=== PATIENT | female | born 1975 | race Caucasian/White ===

== ENCOUNTER 2022-01-09 07:24 | Emergency (ER) | payer BC ==
[~2022-01-09] VITALS: Ht 160 cm; Wt 55.7 kg
[~2022-01-09 07:24] MED LIST: PRCD5U PO; PRD50T PO
[2022-01-09] MEDS ORDERED: FAMOTIDINE 20 MG (PEPCID) TABLET PO STA (07:40)
[2022-01-09] MEDS ORDERED: ANTACID SUSP 30 ML UDC (MYLANTA) PO ONE (07:45)
[2022-01-09] MEDS ORDERED: LIDOCAINE 2% VISCOUS 15 ML UDC PO ONE (07:45)
[2022-01-09] MEDS ORDERED: ACETAMINOPHEN 500 MG TAB (TYLENOL) PO ONE (07:45)
[2022-01-09] MEDS ORDERED: HYOSCYAMINE 0.125 MG (LEVSIN) TAB SL ONE (07:45)
--- NOTE | 2022-01-09 07:46 | ED Abdominal Pain ---
General Stated Complaint: ABD PAIN Source of Information: Patient Exam Limitations: No Limitations History of Present Illness Date Seen by Provider: Jan 09, 2022 Time Seen by Provider: 07:28 Initial Comments 46-year-old female with no pertinent past medical history coming in due to general abdominal pain. Started , was constant that day, crampy/sharp at times. Got better at night, persisted through the weekend. Not associated with any nausea, vomiting, diarrhea, fever, chills, dysuria, vaginal discharge, vaginal bleeding, or any other concerns. Eating does not change it. Feels better when she sits forward. Went to walk-in clinic yesterday and was told it could be gastritis, to stop trying ibuprofen, and to decrease her caffeine intake. She has never had pain like this before. Only previous abdominal surgery was a many years ago. Had a bowel movement on Saturday which is pretty typical for her. She states the pain this morning feels more like in her lower abdomen most of the time. She is otherwise denying any other acute complaints. Does not have periods with her IUD in place. Allergies and Home Medications Allergies Coded Allergies: No Known Drug Allergies (Unverified , 12/22/11) Patient Home Medication List Home Medication List Reviewed: Yes Prednisone (Prednisone) 50 Mg Tab, 40 MG PO DAILY Prescribed by: JOURDAN VALENCIA on 12/22/11 1345 Promethazine/Codeine (Phenergan W/Codeine Syrup) 5 Ml Syrp, 0 PO Q4H Prescribed by: JOURDAN VALENCIA on 12/22/11 1345 Review of Systems Review of Systems Constitutional: No fever EENTM: No Blurred Vision Respiratory: Denies Cough Cardiovascular: Denies Chest Pain Gastrointestinal: Abdominal Pain; Denies Diarrhea, Denies Nausea, Denies Vomiting Genitourinary: No Symptoms Reported Musculoskeletal: no symptoms reported Skin: no symptoms reported Psychiatric/Neurological: No Symptoms Reported Endocrine: No Symptoms Reported Hematologic/Lymphatic: No Symptoms Reported All Other Systems Reviewed Negative Unless Noted: Yes Past [id number] Hx Patient Social History Use of E-Cig and/or Vaping dev: Yes E-Cig or Vaping type used: Nicotine Substance use?: No Alcohol Use?: Yes Alcohol Frequency: Once in a while Seasonal Allergies Seasonal Allergies: Yes Past Medical History Surgeries: Yes Section Physical Exam Vital Signs Vital Signs - First Documented 01/09/22 07:40 Temp 36.0 Pulse 96 Resp 18 B/P (MAP) 123/84 (97) Pulse Ox 98 Capillary Refill : Height/Weight/BMI Height: '" Weight: lbs. oz. kg; BMI Method: General Appearance: WD/WN, no apparent distress HEENT: PERRL/EOMI, normal ENT inspection, pharynx normal Neck: non-tender, full range of motion, supple, normal inspection Respiratory: chest non-tender, lungs clear, normal breath sounds, no respiratory distress, no accessory muscle use Cardiovascular: regular rate, rhythm, no edema, no murmur Gastrointestinal: normal bowel sounds, soft; No distended, No guarding, No rebound; tenderness Extremities: normal range of motion, non-tender, normal inspection, no pedal edema, no calf tenderness, normal capillary refill Back: normal inspection, no CVA tenderness Neurologic/Psychiatric: no motor/sensory deficits, alert, normal mood/affect Skin: normal color, warm/dry Lymphatic: no adenopathy Progress/Results/Core Measures Results/Orders Lab Results Laboratory Tests Test 01/09/22 07:43 01/09/22 07:53 Range/Units White Blood Count 9.3 4.3-11.0 10^3/uL Red Blood Count 4.56 3.80-5.11 10^6/uL Hemoglobin 15.0 11.5-16.0 g/dL Hematocrit 44 35-52 % Mean Corpuscular Volume 96 80-99 fL Mean Corpuscular Hemoglobin 33 25-34 pg Mean Corpuscular Hemoglobin Concent 34 32-36 g/dL Red Cell Distribution Width 12.0 10.0-14.5 % Platelet Count 353 130-400 10^3/uL Mean Platelet Volume 9.0 9.0-12.2 fL Immature Granulocyte % (Auto) 0 % Neutrophils (%) (Auto) 70 42-75 % Lymphocytes (%) (Auto) 21 12-44 % Monocytes (%) (Auto) 5 0-12 % Eosinophils (%) (Auto) 3 0-10 % Basophils (%) (Auto) 1 0-10 % Neutrophils # (Auto) 6.5 1.8-7.8 10^3/uL Lymphocytes # (Auto) 2.0 1.0-4.0 10^3/uL Monocytes # (Auto) 0.5 0.0-1.0 10^3/uL Eosinophils # (Auto) 0.2 0.0-0.3 10^3/uL Basophils # (Auto) 0.1 0.0-0.1 10^3/uL Immature Granulocyte # (Auto) 0.0 0.0-0.1 10^3/uL Sodium Level 135 135-145 MMOL/L Potassium Level 4.4 3.6-5.0 MMOL/L Chloride Level 103 98-107 MMOL/L Carbon Dioxide Level 23 21-32 MMOL/L Anion Gap 9 5-14 MMOL/L Blood Urea Nitrogen 17 7-18 MG/DL Creatinine 1.09 0.60-1.30 MG/DL Estimat Glomerular Filtration Rate 63 BUN/Creatinine Ratio 16 Glucose Level 105 70-105 MG/DL Calcium Level 9.2 8.5-10.1 MG/DL Corrected Calcium 8.9 8.5-10.1 MG/DL Magnesium Level 2.1 1.6-2.4 MG/DL Total Bilirubin 0.4 0.1-1.0 MG/DL Aspartate Amino Transf (AST/SGOT) 22 5-34 U/L Alanine Aminotransferase (ALT/SGPT) 19 0-55 U/L Alkaline Phosphatase 70 40-136 U/L Total Protein 7.4 6.4-8.2 GM/DL Albumin 4.4 3.2-4.5 GM/DL Lipase 24 8-78 U/L Urine Color YELLOW Urine Clarity CLEAR Urine pH 6.0 5-[address] [place] 1.015 L 1.016-1.022 Urine Protein NEGATIVE NEGATIVE Urine Glucose (UA) NEGATIVE NEGATIVE Urine Ketones NEGATIVE NEGATIVE Urine Nitrite NEGATIVE NEGATIVE Urine Bilirubin NEGATIVE NEGATIVE Urine Urobilinogen 0.2 < = 1.0 MG/DL Urine Leukocyte Esterase 1+ H NEGATIVE Urine RBC (Auto) 2+ H NEGATIVE Urine RBC 0-2 /HPF Urine WBC 2-5 /HPF Urine Squamous Epithelial Cells 5-10 /HPF Urine Crystals NONE /LPF Urine Bacteria FEW H /HPF Urine Casts NONE /LPF Urine Mucus NEGATIVE /LPF Urine Culture Indicated NO My Orders Orders - JOSE MARTINES MD Cbc With Automated Diff (01/09/22 07:40) Comprehensive Metabolic Panel (01/09/22 07:40) Lipase (01/09/22 07:40) Magnesium (01/09/22 07:40) Ua Culture If Indicated (01/09/22 07:40) Lidocaine 2% Viscous 15 Ml (Xylocaine Vi (01/09/22 07:45) Famotidine Tablet (Pepcid Tablet) (01/09/22 07:40) Antacid Suspension (Mylanta Suspension (01/09/22 07:45) Hyoscyamine Sl Tablet (Levsin Sl Tablet) (01/09/22 07:45) Ed Iv/Invasive Line Start (01/09/22 07:40) Ct Abdomen/Pelvis W (01/09/22 07:40) Acetaminophen Tablet (Tylenol Tablet) (01/09/22 07:45) Urine Bedside (01/09/22 07:43) Iohexol Injection (Omnipaque 350 Mg/Ml 1 (01/09/22 08:00) Received Contrast (Hold Metformin- Contr (01/09/22 08:00) Ns (Ivpb) (Sodium Chloride 0.9% Ivpb Bag (01/09/22 08:00) Sodium Chloride Flush (Catheter Flush Sy (01/09/22 08:00) Us Non Ob Pelvis Comp/Transvag (01/09/22 08:59) Medications Given in ED Current Medications Medications Dose Ordered Sig/Jackeline Route Start Time Stop Time Status Last Admin Dose Admin Acetaminophen 1,000 mg ONCE ONCE PO 01/09/22 07:45 01/09/22 07:46 DC 01/09/22 08:06 1,000 MG Al Hydrox/Mg Hydrox/Simethicone 30 ml ONCE ONCE PO 01/09/22 07:45 01/09/22 07:46 DC 01/09/22 08:06 30 ML Hyoscyamine Sulfate 0.125 mg ONCE ONCE SL 01/09/22 07:45 01/09/22 07:46 DC 01/09/22 08:06 0.125 MG Iohexol 100 ml ONCE ONCE IV 01/09/22 08:00 01/09/22 08:01 DC 01/09/22 08:25 59 ML Lidocaine HCl 15 ml ONCE ONCE PO 01/09/22 07:45 01/09/22 07:46 DC 01/09/22 08:06 15 ML Sodium Chloride 10 ml NEEDED PRN IV 01/09/22 08:00 01/09/22 08:25 10 ML Sodium Chloride 100 ml ONCE ONCE IV 01/09/22 08:00 01/09/22 08:01 DC 01/09/22 08:25 80 ML Vital Signs/I&O 01/09/22 07:40 Temp 36.0 Pulse 96 Resp 18 B/P (MAP) 123/84 (97) Pulse Ox 98 Progress Progress Note : Progress Note 46-year-old female with above history presenting for abdominal pain. ABCs were intact and vitals are stable on presentation. Physical exam consistent with lower abdominal tenderness with no signs of peritonitis. An IV was placed and basic labs were obtained were consistent for normal white blood cell count, nor mal lipase, urinalysis without evidence of infection. CT abdomen pelvis with nothing acute, but does have a large left-sided ovarian cyst. Ultrasound and obtained to assess for ovarian torsion which was negative. I believe the patient is stable for discharge with outpatient follow-up. She was sent with strict return precautions Diagnostic Imaging Diagonstic Imaging: CT (abd/pelvis), Ultrasound (pelvis) Comments [facility] [place], [place] NAME: KELLY JARAMILLO [facility] REC#: [id number] PT STATUS: REG ER : 1975 PHYSICIAN: JOSE MARTINES MD ADMIT DATE: 01/09/22/ER Draft Date of Exam:01/09/22 CT ABDOMEN/PELVIS W PROCEDURE: CT abdomen and pelvis with contrast. TECHNIQUE: Multiple contiguous axial images were obtained through the abdomen and pelvis after administration of intravenous contrast. Auto Exposure Controls were utilized during the CT exam to meet ALARA standards for radiation dose reduction. All CT scans use one or more of the following dose optimizing techniques: automated exposure control, MA and/or KvP adjustment based on patient size and exam type or iterative reconstruction. INDICATION: Lower abdominal pain, greater right. FINDINGS: The appendix arises off the caudal pole of the cecum and is directed inferiorly, air-containing, and non-thickened. No periappendiceal edema. No stone. No evidence for appendicitis. There is no hydroureteronephrosis and no radiopaque urinary tract calculi. No perinephric or periureteric edema or stranding. The liver, gallbladder, bile ducts, spleen, adrenals, and pancreas are unremarkable. There is no ileus or bowel obstruction. There is no ascites, abscess, hematoma, or acute fluid collection. There is an IUD device in good position. There is a unilocular cyst in the left adnexa, presumed ovarian, showing no appreciable complexity. It measures 4.8 x 2.9 cm. 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 No acute appearing bony abnormality. IMPRESSION: Normal appendix. Unobstructed urinary tracts. Large left ovarian cyst. Otherwise, negative. Dictated on workstation # [id number] Dict: 01/09/2234 Trans: 01/09/2246 [id number] Interpreted by: BETHANY DUNCAN Electronically signed by: Departure Impression Primary Impression: Abdominal pain Qualified Codes: R10.84 - Generalized abdominal pain Additional Impression: Ovarian cyst Qualified Codes: N83.202 - Unspecified ovarian cyst, left side Disposition: 01 HOME, SELF-CARE Condition: Stable Departure-Patient Inst. Decision time for Depature: 09:54 Referrals: RUDOLPH MARKHAM CHAD C MD (PCP/Family) Primary Care Physician Patient Instructions: Ovarian Cyst ED Add. Discharge Instructions: You do have an ovarian cyst on the left which could be causing her pain. Could also be related to gastritis like they mentioned the other day to you. I do recommend following up with a nuts and bolts assembler to discuss what to do with that cyst whether it is removing it or watching it closely. Take ibuprofen and/or Tylenol as needed for pain. If pain worsens with the ibuprofen, then I would recommend stopping it. We can try you on an acid reducing medicine as well to see if that will help Scripts Pantoprazole Sodium (Pantoprazole Sodium) 40 Mg Tablet. 40 MG PO DAILY for 30 Days, #30 TAB Prov: JOSE MARTINES MD 01/09/22 Work/School Note: Work Release Form Date Seen in the Emergency Department: Jan 09, 2022 Return to Work: Jan 10, 2022 Restrictions: No Restrictions JOSE MARTINES MD Jan 09, 2022 07:46
[2022-01-09 07:52] LABS: BASOPHILS # (AUTO) 0.1 10^3/uL (0.0-0.1); BASOPHILS % (AUTO) 1 % (0-10); EOSINOPHILS # (AUTO) 0.2 10^3/uL (0.0-0.3); EOSINOPHILS % (AUTO) 3 % (0-10); HEMATOCRIT 44 % (35-52); LYMPHOCYTES % (AUTO) 21 % (12-44); MEAN CORPUSCULAR HEMOGLOBIN 33 pg (25-34); MEAN CORPUSCULAR HGB CONC 34 g/dL (32-36); MEAN CORPUSCULAR VOLUME 96 fL (80-99); MONOCYTES # (AUTO) 0.5 10^3/uL (0.0-1.0); MONOCYTES % (AUTO) 5 % (0-12); NEUTROPHILS # (AUTO) 6.5 10^3/uL (1.8-7.8); NEUTROPHILS % (AUTO) 70 % (42-75); PLATELET COUNT 353 10^3/uL (130-400); WHITE BLOOD COUNT 9.3 10^3/uL (4.3-11.0)
[2022-01-09 07:59] LABS: BILIRUBIN,URINE NEGATIVE (NEGATIVE); CLARITY,URINE CLEAR; COLOR,URINE YELLOW; GLUCOSE, URINE (UA) NEGATIVE (NEGATIVE); KETONES,URINE NEGATIVE (NEGATIVE); LEUKOCYTE ESTERASE ,URINE 1+ (NEGATIVE); NITRITE,URINE NEGATIVE (NEGATIVE); PROTEIN,URINE NEGATIVE (NEGATIVE)
[2022-01-09 08:00] LABS: ALBUMIN 4.4 GM/DL (3.2-4.5)
[2022-01-09] MEDS ORDERED: HOLD METFORMIN - RECEIVED CONTRAST 20 ML VIAL IV SCH (08:00)
[2022-01-09] MEDS ORDERED: IOHEXOL 350 MG/ML 100 ML (OMNIPAQUE 350) VIAL IV ONE (08:00)
[2022-01-09] MEDS ORDERED: NS 100 ML (IVPB) BAG IV ONE (08:00)
[2022-01-09] MEDS ORDERED: CATHETER FLUSH 10 ML SYR IV PRN (08:00)
[2022-01-09 08:01] LABS: POTASSIUM 4.4 MMOL/L (3.6-5.0)
[2022-01-09 08:02] LABS: CALCIUM 9.2 MG/DL (8.5-10.1)
[2022-01-09 08:03] LABS: TOTAL PROTEIN 7.4 GM/DL (6.4-8.2)
[2022-01-09 08:05] LABS: BILIRUBIN,TOTAL 0.4 MG/DL (0.1-1.0)
[2022-01-09 08:07] LABS: CREATININE SERUM 1.09 MG/DL (0.60-1.30)
[2022-01-09 08:07] LABS: BACTERIA,URINE FEW /HPF; RBC,URINE 0-2 /HPF
[2022-01-09 08:09] LABS: MAGNESIUM 2.1 MG/DL (1.6-2.4)
--- NOTE | 2022-01-09 08:47 | Diagnostic Imaging Report ---
PROCEDURE: CT abdomen and pelvis with contrast. TECHNIQUE: Multiple contiguous axial images were obtained through the abdomen and pelvis after administration of intravenous contrast. Auto Exposure Controls were utilized during the CT exam to meet ALARA standards for radiation dose reduction. All CT scans use one or more of the following dose optimizing techniques: automated exposure control, MA and/or KvP adjustment based on patient size and exam type or iterative reconstruction. INDICATION: Lower abdominal pain, greater right. FINDINGS: The appendix arises off the caudal pole of the cecum and is directed inferiorly, air-containing, and non-thickened. No periappendiceal edema. No stone. No evidence for appendicitis. There is no hydroureteronephrosis and no radiopaque urinary tract calculi. No perinephric or periureteric edema or stranding. The liver, gallbladder, bile ducts, spleen, adrenals, and pancreas are unremarkable. There is no ileus or bowel obstruction. There is no ascites, abscess, hematoma, or acute fluid collection. There is an IUD device in good position. There is a unilocular cyst in the left adnexa, presumed ovarian, showing no appreciable complexity. It measures 4.8 x 2.9 cm. 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 No acute appearing bony abnormality. IMPRESSION: Normal appendix. Unobstructed urinary tracts. Large left ovarian cyst. Otherwise, negative. Dictated by: Dictated on workstation # [id number]
[2022-01-09] MEDS ORDERED: PANT40TA52 PO (10:13)
[2022-01-09 10:44] VITALS: BP 115/77
--- NOTE | 2022-01-09 10:47 | Diagnostic Imaging Report ---
PROCEDURE: US Non-ob pelvis comp/trans. TECHNIQUE: Multiple realtime grayscale images were obtained of the pelvis in various projections endovaginally. Transabdominal imaging was also performed. INDICATION: Pain. FINDINGS: There is a large unilocular left ovarian cyst measuring 4.7 cm. Normal color Doppler blood flow to the adnexa confirm. No evidence for torsion. The right ovary appeared normal. There is a minute amount of free fluid in the cul-de-sac. Some small cervical nabothian cysts are present. There is an IUD device in good position without evidence for perforation or imbedding. IMPRESSION: 1. Simple appearing left ovarian cyst. No adnexal torsion. Minute free fluid. 2. IUD in place without its apparent complication. Dictated by: Dictated on workstation # [id number]
== END 2022-01-09 10:44 | disposition home or self-care (01) ==
LOC: EDUNIT# 07:24 → ER 07:30
DX: N83.202 Unspecified ovarian cyst, left side (principal); F17.290 Nicotine dependence, other tobacco product, uncomplicated
CPT/HCPCS: 36415; 74177; 76830; 76856; 80053; 81000; 83690; 83735; 85025